=== PATIENT | female | born 1990 | race Two or more races ===

== ENCOUNTER 2019-01-09 00:16 | Emergency (ER) | payer SELFPAY ==
[~2019-01-09] VITALS: Ht 154.9 cm; Wt 64.0 kg
[2019-01-09] MEDS ORDERED: KETOROLAC 60MG/2ML VIAL IM ONE (01:30)
[2019-01-09] MEDS ORDERED: CYCLOBENZAPRINE 10MG TABLET PO ONE (01:30)
[2019-01-09 02:24] VITALS: BP 119/79
== END 2019-01-09 02:24 | disposition home or self-care (01) ==
LOC: ER 00:16
DX: S16.1XXA Strain of muscle, fascia and tendon at neck level, initial encounter (principal); S50.312A Abrasion of left elbow, initial encounter; M79.605 Pain in left leg; R51 Headache; M54.2 Cervicalgia; V49.88XA Car occupant (driver) (passenger) injured in other specified transport accidents, initial encounter; Y93.89 Activity, other specified; Y92.89 Other specified places as the place of occurrence of the external cause; Y99.8 Other external cause status
CPT/HCPCS: 96372; 99283; J1885